=== PATIENT | female | born 2000 | race African-American/Black ===

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

== ENCOUNTER 2019-11-21 19:36 | Emergency (ER) | payer BC, MEDICAID, OTHER ==
[~2019-11-21] VITALS: Ht 157.4 cm; Wt 98.2 kg
[~2019-11-21 19:36] MED LIST changes: -TRAM50TA2 PO; +TRM50T PO
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
[2019-11-21] MEDS ORDERED: TETANUS,DIPTH,PERTUSS P/F (BOOSTRIX) 0.5 ML VIAL IM ONE (20:00)
[2019-11-21 20:09] VITALS: BP 141/85
== END 2019-11-21 20:02 | disposition home or self-care (01) ==
LOC: EDUNIT# 19:36 → ER FS 19:37
DX: S81.812A Laceration without foreign body, left lower leg, initial encounter (principal); Z23 Encounter for immunization; W18.39XA Other fall on same level, initial encounter; W22.8XXA Striking against or struck by other objects, initial encounter
CPT/HCPCS: 90715; 99284